=== PATIENT | female | born 1980 | race American Indian/Alaskan Native ===

== ENCOUNTER 2023-05-25 12:35 | Observation (INO) | payer BC ==
[~2023-05-25] VITALS: Ht 160 cm; Wt 74.8 kg
[2023-05-25] MEDS ORDERED: PREN-96 PO (13:15)
[2023-05-25] MEDS ORDERED: DOXY25TA9 PO (13:15)
[2023-05-25] MEDS ORDERED: BETAMETHASONE ACET (30mg/5ml) 5ml Vial 6mg/ml IM ONE (13:45)
[2023-05-25] MEDS ORDERED: NIFEdipine 10 MG CAP PO ONE (13:45)
== END 2023-05-25 15:11 | disposition home or self-care (01) ==
LOC: LDRP 12:35
PROVIDERS: ADMIT Obstetrics & Gynecology; ATTEND Obstetrics & Gynecology
DX: O60.03 Preterm labor without delivery, third trimester (principal); O26.873 Cervical shortening, third trimester; Z3A.32 32 weeks gestation of pregnancy
CPT/HCPCS: 59025; 81002; 94760; 96372; G0378; J0702

== ENCOUNTER 2023-05-26 13:48 | Observation (INO) | payer BC ==
[~2023-05-26] VITALS: Ht 160 cm; Wt 70.3 kg
[~2023-05-26 13:48] MED LIST: DOXY25TA9 PO; PREN-96 PO
[2023-05-26] MEDS ORDERED: BETAMETHASONE ACET (30mg/5ml) 5ml Vial 6mg/ml IM ONE (14:15)
== END 2023-05-26 15:20 | disposition home or self-care (01) ==
LOC: LDRP 13:48
PROVIDERS: ADMIT Obstetrics & Gynecology; ATTEND Obstetrics & Gynecology
DX: O60.03 Preterm labor without delivery, third trimester (principal); O09.523 Supervision of elderly multigravida, third trimester; Z3A.31 31 weeks gestation of pregnancy
CPT/HCPCS: 59025; 81002; 96372; G0378; J0702

== ENCOUNTER 2023-05-30 09:50 | Observation (INO) | payer BC ==
[~2023-05-30] VITALS: Ht 160 cm; Wt 76.2 kg
[2023-05-30] MEDS ORDERED: NIF10C PO (10:19)
== END 2023-05-30 10:36 | disposition home or self-care (01) ==
LOC: UNDOADMOB 09:50 → LDRP 09:50 → UNDODISOB 10:36
PROVIDERS: ADMIT Obstetrics & Gynecology; ATTEND Obstetrics & Gynecology
DX: O60.03 Preterm labor without delivery, third trimester (principal); Z3A.31 31 weeks gestation of pregnancy
CPT/HCPCS: 59025; 81002; 94760; G0378

== ENCOUNTER 2023-06-06 09:58 | Observation (INO) | payer BC ==
[~2023-06-06] VITALS: Ht 160 cm; Wt 75.7 kg
[~2023-06-06 09:58] MED LIST changes: +NIF10C PO
== END 2023-06-06 10:40 | disposition home or self-care (01) ==
LOC: LDRP 09:58 → UNDOADMOB 09:58 → LDRP 10:00
PROVIDERS: ADMIT Obstetrics & Gynecology; ATTEND Obstetrics & Gynecology
DX: O60.03 Preterm labor without delivery, third trimester (principal); Z3A.32 32 weeks gestation of pregnancy
CPT/HCPCS: 59025; 81002; 94760; G0378

== ENCOUNTER 2023-06-13 10:07 | Observation (INO) | payer BC | END 2023-06-13 11:00 | disposition home or self-care (01) | LOC: LDRP 10:07 → UNDOADMOB 10:07 → LDRP 10:21 | PROVIDERS: ADMIT Obstetrics & Gynecology; ATTEND Obstetrics & Gynecology | DX: O60.03 Preterm labor without delivery, third trimester (principal); Z3A.33 33 weeks gestation of pregnancy | CPT/HCPCS: 59025; 81002; 94760; G0378 ==

== ENCOUNTER 2023-06-20 09:55 | Observation (INO) | payer BC | END 2023-06-20 11:00 | disposition home or self-care (01) | LOC: LDRP 09:55 | PROVIDERS: ADMIT Obstetrics & Gynecology; ATTEND Obstetrics & Gynecology | DX: O60.03 Preterm labor without delivery, third trimester (principal); Z3A.34 34 weeks gestation of pregnancy | CPT/HCPCS: 59025; 81002; 94760; G0378 ==

== ENCOUNTER 2023-06-27 11:08 | Observation (INO) | payer BC | END 2023-06-27 11:37 | disposition home or self-care (01) | LOC: LDRP 11:08 → UNDOADMOB 11:08 → LDRP 11:20 | PROVIDERS: ADMIT Obstetrics & Gynecology; ATTEND Obstetrics & Gynecology | DX: O60.03 Preterm labor without delivery, third trimester (principal); Z3A.35 35 weeks gestation of pregnancy | CPT/HCPCS: 59025; 81002; G0378 ==

== ENCOUNTER → 2023-06-29 | Outpatient (CLI) | payer BC ==
[2023-06-29 10:10] LABS: Basophils # (auto) 0 10 ^3/uL (0-0.2); Basophils % (auto) 0.3 % (0.0-2.0); Eosinophils # (auto) 0.1 10 ^3/uL (0-0.8); Hematocrit 36.3 % (36.0-46.0); Hemoglobin 12.2 g/dL (12.2-16.2); Lymphocytes % (auto) 26.1 % (10.0-50.0); Mean Corpuscular Hemoglobin 30.8 pg (28.0-32.0); Mean Corpuscular Hgb Conc. 33.6 g/dL (32.0-36.0); Mean Corpuscular Volume 91.5 fL (80.0-100.0); Monocytes # (auto) 0.7 10 ^3/uL (0-1.3); Monocytes % (auto) 6.4 % (0.0-12.0); Neutrophils # (auto) 7.6 10 ^3/uL (1.6-8.6); Neutrophils % (auto) 66.2 % (37.0-80.0); Red Blood Cells 3.97 10^6/uL (4.0-5.20); Red Cell Distribution Width 13.6 % (11.8-14.3); White Blood Cell 11.5 10^3/uL (4.4-10.8)
[2023-06-30 09:13] LABS: RPR Non Reactive (Non Reactive)
[2023-06-30 11:37] LABS: Treponema Pallidum Ab LC Non Reactive (Non Reactive)
== END | disposition home or self-care (01) ==
LOC: LAB 09:40
PROVIDERS: ATTEND Obstetrics & Gynecology
DX: O09.93 Supervision of high risk pregnancy, unspecified, third trimester (principal); Z11.3 Encounter for screening for infections with a predominantly sexual mode of transmission; Z3A.36 36 weeks gestation of pregnancy
CPT/HCPCS: 36415; 84112; 85025; 86592

== ENCOUNTER 2023-07-06 10:24 | Observation (INO) | payer BC ==
[2023-07-06 12:20] LABS: Alanine Aminotransferase 11 U/L (7-40); Albumin 3.8 g/dL (3.2-4.8); Alkaline Phosphatase 141 U/L (46-116); Anion Gap 8 (5-15); Aspartate Aminotransferase 19 U/L (13-40); BUN/Creatinine Ratio 13.4 (10.0-20.0); Bilirubin, Total 0.5 mg/dL (0.2-1.0); Blood Urea Nitrogen 9 mg/dL (9-23); Calcium 9.1 mg/dL (8.7-10.4); Carbon Dioxide 21 mmol/L (20-30); Chloride 106 mmol/L (98-107); Glucose 75 mg/dL (74-106); Potassium 3.8 mmol/L (3.5-5.1); Sodium 135 mmol/L (136-145); Total Protein 6.9 g/dL (5.7-8.2); Uric Acid 4.9 mg/dL (3.1-7.8)
[2023-07-06] MEDS ORDERED: URSO300C2 PO (12:27)
== END 2023-07-06 12:46 | disposition home or self-care (01) ==
LOC: LDRP 10:24 → UNDOADMOB 10:24 → LDRP 11:07 → UNDODISOB 12:46
PROVIDERS: ADMIT Obstetrics & Gynecology; ATTEND Obstetrics & Gynecology
DX: O26.643 Intrahepatic cholestasis of pregnancy, third trimester (principal); K83.1 Obstruction of bile duct; Z3A.37 37 weeks gestation of pregnancy
CPT/HCPCS: 36415; 59025; 76818; 80053; 81002; 84550; 94760; G0378

== ENCOUNTER 2023-07-09 09:14 | Observation (INO) | payer BC ==
[~2023-07-09 09:14] MED LIST changes: -NIF10C PO; +URSO300C2 PO
== END 2023-07-12 14:02 | disposition home or self-care (01) ==
LOC: UNDOADMOB 07-12 11:56 → LDRP 07-12 11:56 → UNDODISOB 07-12 14:02
PROVIDERS: ADMIT Obstetrics & Gynecology; ATTEND Obstetrics & Gynecology
DX: O26.643 Intrahepatic cholestasis of pregnancy, third trimester (principal); K83.1 Obstruction of bile duct; Z3A.38 38 weeks gestation of pregnancy
CPT/HCPCS: 59025; 76818; 81002; 94760; G0378

== ENCOUNTER 2023-07-16 11:02 | Observation (INO) | payer BC | END 2023-07-16 12:48 | disposition home or self-care (01) | LOC: LDRP 11:02 → UNDOADMOB 11:02 → LDRP 11:07 | PROVIDERS: ADMIT Obstetrics & Gynecology; ATTEND Obstetrics & Gynecology | DX: O26.643 Intrahepatic cholestasis of pregnancy, third trimester (principal); K83.1 Obstruction of bile duct; Z3A.37 37 weeks gestation of pregnancy | CPT/HCPCS: 59025; 76818; 81002; 94760; G0378 ==

== ENCOUNTER 2023-07-19 11:56 | Observation (INO) | payer BC | END 2023-07-19 13:28 | disposition home or self-care (01) | LOC: LDRP 11:56 | PROVIDERS: ADMIT Obstetrics & Gynecology; ATTEND Obstetrics & Gynecology | DX: O09.523 Supervision of elderly multigravida, third trimester (principal); Z3A.39 39 weeks gestation of pregnancy | CPT/HCPCS: 59025; 76818; 81002; 94760; G0378 ==

== ENCOUNTER 2023-07-22 11:55 | Inpatient (IN) | payer BC, MEDICAID ==
[~2023-07-22] VITALS: Ht 160 cm; Wt 77.6 kg
[2023-07-22] MEDS ORDERED: DERMOPLAST 60ML BOTTLE TOP PRN (15:00)
[2023-07-22] MEDS ORDERED: PROMETHAZINE HCL 25 MG/ML 1ML IV PRN ×2 (15:00)
[2023-07-22] MEDS ORDERED: BUTORPHANOL TARTRATE 2 MG/1 ML VIAL IV PRN ×2 (15:00)
[2023-07-22] MEDS ORDERED: LIDOCAINE 2%HCL (LOCAL ANESTH.) INJ 20ML MDV IJ PRN (15:00)
[2023-07-22] MEDS ORDERED: PHISODERM TOP SOLN 240ML BTL TOP PRN (15:00)
[2023-07-22] MEDS ORDERED: WITCH HAZEL-GLYCERIN PAD TOP PRN (15:00)
[2023-07-22 15:39] LABS: Basophils # (auto) 0 10 ^3/uL (0-0.2); Basophils % (auto) 0.3 % (0.0-2.0); Eosinophils # (auto) 0.1 10 ^3/uL (0-0.8); Eosinophils % (auto) 1.1 % (0.0-7.0); Hematocrit 37.2 % (36.0-46.0); Hemoglobin 12.4 g/dL (12.2-16.2); Lymphocytes # (auto) 2.9 10 ^3/uL (0.4-5.4); Lymphocytes % (auto) 24.3 % (10.0-50.0); Mean Corpuscular Hemoglobin 31.1 pg (28.0-32.0); Mean Corpuscular Hgb Conc. 33.3 g/dL (32.0-36.0); Mean Corpuscular Volume 93.3 fL (80.0-100.0); Monocytes # (auto) 0.8 10 ^3/uL (0-1.3); Monocytes % (auto) 6.5 % (0.0-12.0); Neutrophils % (auto) 67.8 % (37.0-80.0); Nucleated Red Blood Cells % 0.1 %; Red Blood Cells 3.99 10^6/uL (4.0-5.20); Red Cell Distribution Width 14.1 % (11.8-14.3); White Blood Cell 11.8 10^3/uL (4.4-10.8)
[2023-07-22 15:59] LABS: Alanine Aminotransferase 19 U/L (7-40); Albumin 3.8 g/dL (3.2-4.8); Alkaline Phosphatase 157 U/L (46-116); Anion Gap 7 (5-15); Aspartate Aminotransferase 25 U/L (13-40); BUN/Creatinine Ratio 11.6 (10.0-20.0); Bilirubin, Total 0.4 mg/dL (0.2-1.0); Blood Urea Nitrogen 8 mg/dL (9-23); Calcium 9.7 mg/dL (8.5-10.1); Carbon Dioxide 23 mmol/L (20-30); Chloride 105 mmol/L (98-107); Glucose 75 mg/dL (74-106); Sodium 135 mmol/L (136-145); Total Protein 6.7 g/dL (5.7-8.2)
[2023-07-22] MEDS: LACTATED RINGER'S 1,000 ML IV SCH ×2 (16:10→17:13)
[2023-07-22 16:21] LABS: Urine Bacteria FEW /hpf (None Seen); Urine Blood Negative /uL (Negative); Urine Clarity Clear (Clear); Urine Color Yellow (Yellow); Urine Mucus FEW (None Seen); Urine Protein, UAD Negative (Negative); Urine Specific Gravity 1.017 (1.001-1.035); Urine Urobilinogen Normal (Negative); Urine WBC 1 /hpf (0 - 5)
[2023-07-22 16:24] LABS: INR 0.92 (0.9-1.15); Partial Thromboplastin Time 27.1 SEC (24.5-34.5); Prothrombin Time 9.7 sec (9.3-11.8)
[2023-07-22 16:32] LABS: Amphetamine Screen, Urine Neg (NEGATIVE); Barbiturate Scree,Urine Neg (NEGATIVE); Benzodiazephine Screen, Urine Neg (NEGATIVE); Cocaine Screen, Urine Neg (NEGATIVE); Opiate Scree,Urine Neg (NEGATIVE)
[2023-07-22 16:33] LABS: Cannabinoid Screen, Urine Neg (NEGATIVE); Phencyclidine Screen, Urine Neg (NEGATIVE)
[2023-07-22] MEDS: miSOPROStol 50 MCG per PRE-CUT 1/2 TAB PO PRN ×2 (17:10→21:13)
[2023-07-23] MEDS ORDERED: MORPHINE SULFATE 4 MG/ML SYR/VIAL IM ONE (01:00)
[2023-07-23] MEDS: LACTATED RINGER'S 1,000 ML IV SCH ×2 (01:18→09:11)
[2023-07-23] MEDS ORDERED: MORPHINE SULFATE 4 MG/ML SYR/VIAL ONE (03:25)
[2023-07-23] MEDS: miSOPROStol 50 MCG per PRE-CUT 1/2 TAB PO PRN (04:37)
[2023-07-23] MEDS ORDERED: NALOXONE HCL 0.4 MG/ML VIAL IV ONE (07:30)
[2023-07-23] MEDS ORDERED: LACTATED RINGER'S 1,000 ML IV ONE (07:30)
[2023-07-23] MEDS ORDERED: ePHEDrine SULFATE 50 MG/ML AMP IV ONE (07:30)
[2023-07-23] MEDS ORDERED: ROPIVACAINE HCL 100 ML ONE (07:38)
[2023-07-23] MEDS ORDERED: LACT. RINGERS/OXYTOCIN 20UNITS 500 ML IV ONE ×4 (10:00→17:30)
[2023-07-23] MEDS ORDERED: LACT. RINGERS/OXYTOCIN 20UNITS 1,000 ML IV SCH (10:00)
[2023-07-23] MEDS ORDERED: TERBUTALINE SULFATE 1 MG/ML 1ML VIAL SC PRN (10:00)
[2023-07-23] MEDS ORDERED: ONDANSETRON ODT 4 MG TAB PO PRN (17:00)
[2023-07-23] MEDS: IBUPROFEN 800 MG TAB PO SCH (17:58)
[2023-07-23 18:40] VITALS: RESP 16
[2023-07-23 20:00] VITALS: BP 128/63; PULSE 85; RESP 16; TEMP 98.2; O2SAT 97
[2023-07-23] MEDS ORDERED: DOCUSATE SOD 100 MG CAP PO SCH (22:00)
[2023-07-23] MEDS: ACETAMINOPHEN 325 MG TAB PO PRN (22:05)
[2023-07-23 23:00] VITALS: BP 116/63; PULSE 76; RESP 18; TEMP 98.1; O2SAT 98
[2023-07-24] MEDS: IBUPROFEN 800 MG TAB PO SCH ×2 (00:04→08:12)
[2023-07-24 03:00] VITALS: PULSE 80; RESP 16
[2023-07-24] MEDS: ACETAMINOPHEN 325 MG TAB PO PRN ×2 (04:41→12:27)
[2023-07-24 04:51] LABS: Basophils # (auto) 0.1 10 ^3/uL (0-0.2); Basophils % (auto) 0.3 % (0.0-2.0); Eosinophils # (auto) 0.1 10 ^3/uL (0-0.8); Eosinophils % (auto) 0.8 % (0.0-7.0); Hemoglobin 10.3 g/dL (12.2-16.2); Lymphocytes # (auto) 3.2 10 ^3/uL (0.4-5.4); Lymphocytes % (auto) 16.4 % (10.0-50.0); Mean Corpuscular Hemoglobin 31.3 pg (28.0-32.0); Mean Corpuscular Hgb Conc. 33.1 g/dL (32.0-36.0); Mean Corpuscular Volume 94.5 fL (80.0-100.0); Monocytes # (auto) 1.5 10 ^3/uL (0-1.3); Monocytes % (auto) 7.6 % (0.0-12.0); Neutrophils # (auto) 14.8 10 ^3/uL (1.6-8.6); Neutrophils % (auto) 74.9 % (37.0-80.0); Red Blood Cells 3.28 10^6/uL (4.0-5.20); Red Cell Distribution Width 14.4 % (11.8-14.3); White Blood Cell 19.7 10^3/uL (4.4-10.8)
[2023-07-24 07:00] VITALS: BP 132/74; PULSE 73; RESP 16; TEMP 97.8; O2SAT 98
[2023-07-24 07:06] LABS: RPR Non Reactive (Non Reactive)
[2023-07-24] MEDS ORDERED: DOCU-265 PO (07:37)
[2023-07-24] MEDS ORDERED: FERR30CA PO (07:37)
[2023-07-24] MEDS ORDERED: IBUP-1455 PO (07:37)
[2023-07-24 11:00] VITALS: BP 116/71; PULSE 77; RESP 16; TEMP 98.6; O2SAT 97
[2023-07-24 15:00] VITALS: BP 114/76; PULSE 79; RESP 16; TEMP 97.9; O2SAT 97
[2023-07-25 05:08] LABS: Chlamydia Trachomatis, NAA Negative (Negative); Neisseria gonorrhoeae, NAA Negative (Negative)
[2023-07-25 18:06] LABS: Treponema pallidum Ab (FTA-Ab) Non Reactive (Non Reactive)
== END 2023-07-24 19:00 | disposition home or self-care (01) | DRG 806 ==
LOC: LDRP 11:55 → OBSVTOIN 14:54 → LDRP 17:05
PROVIDERS: ADMIT Obstetrics & Gynecology; ATTEND Obstetrics & Gynecology
PROC: 10D07Z6 Extraction of Products of Conception, Vacuum, Via Natural or Artificial Opening (ICD-10-PCS; principal; 2023-07-23)
PROC: 0KQM0ZZ Repair Perineum Muscle, Open Approach (ICD-10-PCS; 2023-07-23)
PROC: 3E0R3BZ Introduction of Anesthetic Agent into Spinal Canal, Percutaneous Approach (ICD-10-PCS; 2023-07-23)
PROC: 00HU33Z Insertion of Infusion Device into Spinal Canal, Percutaneous Approach (ICD-10-PCS; 2023-07-23)
DX: O41.03X0 Oligohydramnios, third trimester, not applicable or unspecified (principal); O26.643 Intrahepatic cholestasis of pregnancy, third trimester; Z37.0 Single live birth; O70.1 Second degree perineal laceration during delivery; Z3A.39 39 weeks gestation of pregnancy; K76.89 Other specified diseases of liver
CPT/HCPCS: 36415; 59025; 59409; 62282; 76818; 80053; 80307; 81001; 81002; 85025; 85610; 85730; 86592; 86850; 86900; 86901; 94760; 94762; 96361; 96365; 96366; 96372; G0378; J2590

== ENCOUNTER → 2023-08-14 | Outpatient (CLI) | payer BC, MEDICAID ==
[~2023-08-14] MED LIST changes: +DOCU-265 PO; -DOXY25TA9 PO; +FERR30CA PO; +IBUP-1455 PO; -URSO300C2 PO
[2023-08-14 11:30] LABS: Basophils # (auto) 0 10 ^3/uL (0-0.2); Basophils % (auto) 0.8 % (0.0-2.0); Eosinophils # (auto) 0.2 10 ^3/uL (0-0.8); Eosinophils % (auto) 3.8 % (0.0-7.0); Hematocrit 39.6 % (36.0-46.0); Lymphocytes # (auto) 2.3 10 ^3/uL (0.4-5.4); Lymphocytes % (auto) 44.1 % (10.0-50.0); Mean Corpuscular Hemoglobin 30.8 pg (28.0-32.0); Mean Corpuscular Hgb Conc. 32.7 g/dL (32.0-36.0); Mean Corpuscular Volume 94.1 fL (80.0-100.0); Monocytes # (auto) 0.4 10 ^3/uL (0-1.3); Monocytes % (auto) 7.5 % (0.0-12.0); Neutrophils # (auto) 2.3 10 ^3/uL (1.6-8.6); Neutrophils % (auto) 43.8 % (37.0-80.0); Red Blood Cells 4.21 10^6/uL (4.0-5.20); Red Cell Distribution Width 13.9 % (11.8-14.3); White Blood Cell 5.3 10^3/uL (4.4-10.8)
[2023-08-14 11:53] LABS: Ferritin 35.1 ng/mL (10-291)
[2023-08-14 11:54] LABS: Folate (Folic Acid) > 24.00 ng/mL (>5.38); Free T3 2.82 pg/mL (2.3-4.2)
[2023-08-14 11:55] LABS: Free T4 (Free Thyroxine) 0.83 ng/dL (0.89-1.76)
[2023-08-14 11:58] LABS: % Iron Saturation 20.5 % (15-50)
== END | disposition home or self-care (01) ==
LOC: LAB 10:51
PROVIDERS: ATTEND Obstetrics & Gynecology
DX: Z34.80 Encounter for supervision of other normal pregnancy, unspecified trimester (principal); Z3A.00 Weeks of gestation of pregnancy not specified
CPT/HCPCS: 36415; 82306; 82607; 82728; 82746; 83540; 83550; 84439; 84443; 84481; 85025

== ENCOUNTER → 2023-10-19 | Day surgery (SDC) | payer BC, MEDICAID ==
[2023-10-16 14:22] LABS: Urine Bacteria None Seen /hpf (None Seen)
[2023-10-16 14:29] LABS: Basophils # (auto) 0.1 10 ^3/uL (0-0.2); Basophils % (auto) 0.8 % (0.0-2.0); Eosinophils # (auto) 0.2 10 ^3/uL (0-0.8); Eosinophils % (auto) 2.2 % (0.0-7.0); Hematocrit 41.1 % (36.0-46.0); Hemoglobin 13.5 g/dL (12.2-16.2); Lymphocytes # (auto) 3.4 10 ^3/uL (0.4-5.4); Mean Corpuscular Hemoglobin 30.4 pg (28.0-32.0); Mean Corpuscular Hgb Conc. 32.9 g/dL (32.0-36.0); Mean Corpuscular Volume 92.2 fL (80.0-100.0); Monocytes # (auto) 0.5 10 ^3/uL (0-1.3); Monocytes % (auto) 6.7 % (0.0-12.0); Neutrophils % (auto) 42.3 % (37.0-80.0); Nucleated Red Blood Cells % 0.1 %; Red Blood Cells 4.45 10^6/uL (4.0-5.20); Red Cell Distribution Width 12.7 % (11.8-14.3)
[2023-10-16 14:37] LABS: Urine Blood 1+ /uL (Negative); Urine Clarity Clear (Clear); Urine Color Light-Yellow (Yellow); Urine Protein, UAD Negative (Negative); Urine Specific Gravity 1.015 (1.001-1.035); Urine Urobilinogen Normal (Negative); Urine WBC 1 /hpf (0 - 5)
[2023-10-16 14:47] LABS: INR 1.01 (0.9-1.15); Partial Thromboplastin Time 28.9 SEC (24.5-34.5); Prothrombin Time 10.6 sec (9.3-11.8)
[2023-10-16 14:57] LABS: Alanine Aminotransferase 50 U/L (7-40); Albumin 4.6 g/dL (3.2-4.8); Alkaline Phosphatase 84 U/L (46-116); Anion Gap 5 (5-15); Aspartate Aminotransferase 33 U/L (13-40); BUN/Creatinine Ratio 17.9 (10.0-20.0); Blood Urea Nitrogen 15 mg/dL (9-23); Calcium 9.5 mg/dL (8.5-10.1); Carbon Dioxide 30 mmol/L (20-30); Chloride 104 mmol/L (98-107); Glucose 91 mg/dL (74-106); Potassium 3.7 mmol/L (3.5-5.1); Sodium 139 mmol/L (136-145)
[2023-10-16 14:58] LABS: Total Protein 7.5 g/dL (5.7-8.2)
[2023-10-16 15:07] LABS: Bilirubin, Total 0.4 mg/dL (0.2-1.0)
[~2023-10-19] VITALS: Ht 160 cm; Wt 74.8 kg
[~2023-10-19] MED LIST changes: -DOCU-265 PO; +DexAMETHasone SOD PHOS 10MG/1ML VIAL INJ ONE; -FERR30CA PO; +HYDR-4902 PO; +KETOROLAC TROMETH 30 MG/ML 1ML VIAL IV ONE; +LABETALOL HCL 5 MG/ML 4ML SYRINGE IV PRN; +LIDOCAINE W/ EPINEPHRINE 1% 20ML VIAL ONE; +MEPERIDINE HCL (50 MG/ML) 1 ML VIAL ONE; +METHYLENE BLUE 0.5% 5MG/ML 10ml AMP IV ONE; +MIDAZOLAM HCL 2MG/2ML 2ml VIAL (1mg/ml) IV PRN; +MIDAZOLAM HCL 2MG/2ML 2ml VIAL (1mg/ml) ONE; +MORPHINE SULFATE 4 MG/ML SYR/VIAL IV PRN; +ONDANSETRON HCL 4 MG/2 ML VIAL IV ONE; +ONDANSETRON HCL 4 MG/2 ML VIAL ONE; -PREN-96 PO; +PROPOFOL 10 MG/ML 20 ML IV ONE; +ROCURONIUM 10MG/ML 10ML VIAL IV ONE; +ceFAZolin 2 GM/D5W50ml 50 ML IV ONE; +ePHEDrine SULFATE 50 MG/ML AMP IV PRN; +fentaNYL CITRATE 100 MCG/2 ML VL ONE
[2023-10-19 09:50] VITALS: PULSE 91; RESP 10; O2SAT 99
[2023-10-19] MEDS: HYDROmorphone HCL 2 MG/ML VL/or syr IV PRN (10:06)
[2023-10-19] MEDS: HYDROmorphone HCL 2 MG/ML VL/or syr IV ONE (10:28)
[2023-10-19 11:20] VITALS: BP 115/64; PULSE 67; RESP 16; TEMP 97.7
== END | disposition home or self-care (01) ==
LOC: SUR 06:40
PROVIDERS: ATTEND Obstetrics & Gynecology
DX: Z30.2 Encounter for sterilization (principal); F41.8 Other specified anxiety disorders; Z79.899 Other long term (current) drug therapy; Z86.2 Personal history of diseases of the blood and blood-forming organs and certain disorders involving the immune mechanism; Z86.19 Personal history of other infectious and parasitic diseases; Z98.890 Other specified postprocedural states
CPT/HCPCS: 36415; 58671; 80053; 81001; 81025; 84702; 85025; 85610; 85730; 86850; 86900; 86901; A4264; J0690; J1100; J1170; J2175; J2250; J2405; J2704; J3010